=== PATIENT | female | born 1995 | race Caucasian/White ===

== ENCOUNTER 2023-03-20 07:40 | Emergency (ER) | payer BC, SELFPAY ==
[2023-03-20 07:41] VITALS: BP 146/90
--- NOTE | 2023-03-20 07:51 | ED.SKININJ ---
HPI-Injury
General
Chief Complaint: Bite
Source: patient
Time Seen by Provider: 03/20/23 07:48
Travel History
Have you had any contact with someone who has COVID-19?: No
Do you have any symptoms of coronavirus? Fever > 100 degrees, chills, cough, shortness of breath, sore throat, loss of taste or smell, muscle aches, or headache?: No
History of Present Illness-Injury
Initial Injury comments:
28-year-old female presenting to the emergency department for evaluation after she was accidentally bit on the right hand by her dog earlier this morning, dog is domesticated, up-to-date on vaccines, patient unsure if she is updated on her tetanus.
She is right-hand dominant. No other injuries were sustained.
Past History
Past History
ED Past Medical History: GERD and Other (Chronic Abdominal pain)
ED Past Surgical History: Appendectomy
Social History
Tobacco: Non-smoker
Alcohol: None
Drug: None
Personal: Single
Living: with family
Employment: Employed
Family History
Family History: Other (No family history of PEs)
Review of Systems
Review of Systems
All Other Systems: ROS reviewed and negative except as documented in HPI and ROS
Phy Exam
Physical Exam
Physical Exam:
GENERAL: Alert , in no apparent distress
EYE: conjunctiva clear
Head: Normocephalic atraumatic
NECK: Supple,
ENT: mmm.
LUNGS: no acute respiratory distress
NEUROLOGICAL: Alert and oriented
SKIN: Warm and dry, small 8 mm bite wound noted to the dorsal aspect of the second MCP. There is mild surrounding edema. No active bleeding
MUSCULOSKELETAL: well perfused. Full range of motion of all digits
PSYCH: Normal and appropriate interaction.
Scores
Heart Failure Risk
Heart Failure Risk Score: Not Applicable
Heart Score for Chest Pain Patients
STEMI patient?: Not applicable
Withdrawal Assessment of Alcohol
Withdrawal Assessment Completed?: Not applicable
Course
Orders/Labs/Results
Orders:
Orders
03/20/23 07:51
Amoxicillin 875 mg/Clav 125 mg [Augmentin 875 mg/125 mg] 1 tablet PO NOW STA
Tetanus/Diphth/Acelpertussis [Adacel] 0.5 ml IM .ONCE ONE
03/20/23 08:56
Ibuprofen [Motrin] 600 mg PO NOW STA
Vital Signs
Initial and Last Documented VS:
Initial Vital Signs
Temp Pulse Resp BP Pulse Ox
99.0 F 101 16 146/90 97
03/20/23 07:41 03/20/23 07:41 03/20/23 07:41 03/20/23 07:41 03/20/23 07:41
Last Documented Vital Signs
Temp Pulse Resp BP Pulse Ox
99.0 F 91 18 142/90 98
03/20/23 07:41 03/20/23 08:55 03/20/23 08:55 03/20/23 08:55 03/20/23 08:55
MDM/Problems Addressed
MDM/Problems Addressed:
28-year-old female presenting the ER following a bite wound to her right hand, puncture wound is minimal, will leave open due to concern for increasing infection risk by closing. The wound was irrigated extensively with normal saline. Will update
patient's tetanus and treat with Augmentin. Prescription for Augmentin sent to pharmacy. Otherwise stable for discharge and aware of return precautions.
*Pulse Oximetry
Patient hypoxic: no
*Critical Care Note
Total Time (30-74mins, 75-104mins- exclusive of procedures): Not Applicable
ED Attending Note
-
Portions of this chart may have been created with voice recognition software.� Occasional wrong word or��sound alike� substitutions may have occurred due to the inherent limitations of voice recognition software.
Discharge Plan
Departure
Patient Disposition: Home (Routine Discharge)
Date of Disposition: 03/20/23
Time of Disposition: 07:52
Patient with high blood pressure during this ER visit?: Yes
Discharge Problem:
Dog bite of right hand, Bite wound of right hand
Instructions: Animal Bites (DC)
Prescriptions:
New
amoxicillin-pot clavulanate 875-125 mg tablet
1 tab PO BID Qty: 9 0RF
No Action
Beyaz 28 Tablet
1 tab PO DAILY
lactulose 20 GM/30 ML solution
20 gm PO DAILY PRN (Reason: constipation) Qty: 240 0RF
dicyclomine 10 MG capsule
10 mg PO QIDPRN PRN (Reason: abdominal pain) Qty: 30 0RF
ibuprofen 600 MG tablet
600 mg PO Q6 PRN (Reason: pain) Qty: 20 0RF
pantoprazole [Protonix] 20 MG tablet,delayed release (DR/EC)
20 mg PO DAILY Qty: 14 1RF
Stand Alone Forms: Return to Work
Interventions
Interventions:
*Risk Screen - Suicide Last Done: 03/20/23 08:53
*General Assessment Last Done: 03/20/23 08:53
*Neglect/Abuse Screening Last Done: 03/20/23 08:53
ED- Fall Risk Assessment Last Done: 03/20/23 08:54
*ED COVID-19 Vaccine History Last Done: 03/20/23 07:41
*Nursing Disposition Last Done: 03/20/23 09:07
ED-Skin Assessment Last Done: 03/20/23 08:54
Discharge Date and Time
Discharge Date/Time: 03/20/23 09:05
[2023-03-20] MEDS: AUGMENTIN 875 MG/125 MG 1 TABLET PO (08:48)
[2023-03-20] MEDS: ADACEL 0.5 ML IM (08:49)
[2023-03-20 08:55] VITALS: BP 142/90
[2023-03-20] MEDS: MOTRIN 600 MG PO (08:58)
== END 2023-03-20 09:05 | disposition home or self-care (01) ==
LOC: EMR 07:40
PROVIDERS: EMERGENCY PHYSICIAN Emergency Medicine; FAMILY PHYSICIAN Family Medicine
DX: S61.451A Open bite of right hand, initial encounter (principal); W54.0XXA Bitten by dog, initial encounter; Z23 Encounter for immunization; K21.9 Gastro-esophageal reflux disease without esophagitis; Z90.49 Acquired absence of other specified parts of digestive tract
CPT/HCPCS: 99282; 90471; 90715

== ENCOUNTER 2024-09-20 13:39 | Emergency (ER) | payer BC, SELFPAY ==
[2024-09-20 13:41] VITALS: BP 150/96
[2024-09-20 14:13] LABS: Hematocrit 40.0 % (37.0-47.0); Hemoglobin 13.4 g/dL (12.0-16.0); Mean Corp Hgb Conc. 33.5 g/dL (33.0-37.0); Mean Corpuscular Volume 81.8 fL (81.0-99.0); Nucleated Red Blood Cells % 0 %; Platelet Count 377 10^3/uL (130-400); Red Cell Dist. Width 13.1 % (11.5-14.5)
[2024-09-20 14:19] LABS: Urine Character Clear (Clear)
[2024-09-20 14:29] LABS: Urine Red Blood Cell 70-80 /HPF (0-2); Urine Squamous Cell >30 /LPF (Few)
[2024-09-20 14:29] LABS: HCG, Serum Qualitative Screen Negative
[2024-09-20 14:34] LABS: ALT (SGPT) 23 U/L (0-35); AST (SGOT) 19 U/L (14-36); Albumin 4.3 g/dl (3.5-5.0); Alkaline Phosphatase 73 U/L (38-126); Blood Urea Nitrogen 19 mg/dl (7-17); Calcium 9.1 mg/dl (8.4-10.2); Carbon Dioxide 23 mmol/L (22-30); Chloride 107 mmol/L (98-107); Glucose 97 mg/dl (70-99); Potassium 3.7 mmol/L (3.5-5.1); Sodium 140 mmol/L (135-145); Total Protein 7.2 g/dl (6.3-8.2); eGFR > 60.00
[2024-09-20 15:28] VITALS: BMI 39.6
--- NOTE | 2024-09-20 15:33 | ED.GENMED ---
History of Present Illness
General
Chief Complaint: Flank Pain
Source: patient
Exam Limitations: none
Time Seen by Provider: 09/20/24 15:12
Nursing documentation reviewed up to this point in time: agreed with
History of Present Illness
History of Present Illness:
Patient to ED wt complaint of left flank pain. States she noticed pain x 1 hr on saturday. No pain on saturday. Today pain returned and has been constant. Pain radiates to lower abd. Denies fever/chills, n/v/d. No prior historyofsame. To ED
accompainied by family for eval
Past History
Past History
ED Past Medical History: GERD and Other (Chronic Abdominal pain, IBS)
ED Past Surgical History: Appendectomy
Social History
Tobacco: Non-smoker
Alcohol: None
Drug: None
Personal: Single
Living: with family
Employment: Employed
Family History
Family History: Other (No family history of PEs)
Review of Systems
Review of Systems
Allergies reviewed?: Yes
All Other Systems: ROS reviewed and negative except as documented in HPI and ROS
Constitutional: Reports no symptoms
EENT: Reports no symptoms
Respiratory: Reports no symptoms
Cardiac: Reports no symptoms
ABD/GI: Reports no symptoms
: Reports flank pain (left flank)
Musculoskeletal: Reports no symptoms
Skin: Reports no symptoms
Neurological: Reports no symptoms
Psychiatric: Reports no symptoms
Phy Exam
General Physical Exam
General Presentation: moderate distress
General age: appears stated age
General Skin: warm and dry
General Habitus: normal
General Mental: alert
Gastrointestinal Exam
Gastrointestinal Exam: normal bowel sounds, soft, no organomegaly, no pulsatile mass and non distended
Palpation: left upper quadrant: No tenderness, left lower quadrant: Moderate tenderness, right upper quadrant: No tenderness and right lower quadrant: No tenderness
Musculoskeletal Exam
Musculoskeletal Exam: full ROM and neuro vasc intact
Skin Exam
Skin Exam: normal color, warm/dry and no rash
Psychiatric Exam
Psychiatric Exam: normal mood/affect
Course
Orders/Labs/Results
Orders:
Orders
09/20/24
Urinalysis Reflex To Culture Urgent
Date Specimen was Collected: 09/20/24
Time Specimen was Collected: 13:48
Urine Microscopic Reflex Cult Urgent
Urine Culture Urgent
RONIT Source: U
Specimen Description:
Date Specimen was Collected: 09/20/24
Time Specimen was Collected: 13:48
09/20/24 13:47
Test Result ONCE
09/20/24 14:01
CMP [Comprehensive Metabolic Panel] Urgent
Complete Blood Count/With Diff Urgent
HCG, Serum Qualitative Screen Urgent
09/20/24 15:16
CT Abd/pel Without Iv Or Oral Urgent
Comment:
Reason For Exam: left flank pain
09/20/24 15:19
0.9% Sodium Chloride 500 ml [Nss] 500 ml IV BOLUS
Ketorolac [Toradol] 30 mg IV NOW STA
09/20/24 17:20
Tamsulosin [Flomax] 0.4 mg PO NOW STA
Abnormal Lab Results
09/20/24 09/20/24
14:01 Unknown
WBC 15.6 H 10^3/uL
(4.8-10.8)
Abs Immat Gran (auto) 0.1 H 10^3/uL
(0-0.05)
Absolute Neuts (auto) 9.2 H 10^3/uL
(1.4-6.5)
Absolute Lymphs (auto) 5.3 H 10^3/uL
(1.2-3.4)
Absolute Monos (auto) 1.0 H 10^3/uL
(0.1-0.6)
BUN 19 H mg/dl
(7-17)
Ur Occult Blood Reflex 4+ A
(Negative)
Leukocyte Esterase Rfl 1+ A
(Negative)
Urine RBC 70-80 A /HPF
(0-2)
Urine Bacteria (Reflex) Many A
(Negative)
Urine Albumin (Reflex) 2+ A
(Neg - Trace)
09/20/24 14:01
09/20/24 14:01
Vital Signs
Initial and Last Documented VS:
Initial Vital Signs
Temp Pulse Resp BP Pulse Ox
98.5 F 110 18 150/96 98
09/20/24 13:41 09/20/24 13:41 09/20/24 13:41 09/20/24 13:41 09/20/24 13:41
Last Documented Vital Signs
Temp Pulse Resp BP Pulse Ox
98.5 F 110 18 150/96 98
09/20/24 13:41 09/20/24 13:41 09/20/24 13:41 09/20/24 13:41 09/20/24 15:36
*Radiology
Radiology exam reviewed: radiology read reviewed
*Pulse Oximetry
SaO2: 98
Oxygen Mode of Delivery: Room air
Patient hypoxic: no
*Critical Care Note
Total Time (30-74mins, 75-104mins- exclusive of procedures): Not Applicable
Update Note
Update Note:
Patient to ED with complaint of left flank pain. CT confirms 5mm proximal ureter stone with mild hydro. UA reviewed, >30 squamous cells. 6-10 WBC. Doubt UTI, will wait for urine culture. SHe remains afebrile. Pain relieved with toradol. No
vmiting in ED. WIll discharge home, short course of pain meds prescribed. WIll increase fluid intake. Rx for flomax given. SHe will strain urine at home, schedule appt in AM with urology for follow up. Given instructions on s/s to return to ED
and she is agreeeable to plan
ED Attending Note
-
Portions of this chart may have been created with voice recognition software.� Occasional wrong word or��sound alike� substitutions may have occurred due to the inherent limitations of voice recognition software.
Discharge Plan
Departure
Patient Disposition: Home (Routine Discharge)
Date of Disposition: 09/20/24
Time of Disposition: 17:21
Patient with high blood pressure during this ER visit?: No
Condition: Good
Covid-19: Not Applicable
Discharge Problem:
Kidney stone
Instructions: Kidney Stones (DC), How to Strain Your Urine, Narcotic Pain Medication
Prescriptions:
New
tamsulosin [Flomax] 0.4 mg capsule
0.4 mg PO DAILY Qty: 14 0RF
hydrocodone-acetaminophen 5-325 mg tablet
1 tab PO Q4H PRN (Reason: Pain) Qty: 14 0RF
No Action
Beyaz 28 Tablet
1 tab PO DAILY
lactulose 20 GM/30 ML solution
20 gm PO DAILY PRN (Reason: constipation) Qty: 240 0RF
dicyclomine 10 MG capsule
10 mg PO QIDPRN PRN (Reason: abdominal pain) Qty: 30 0RF
ibuprofen 600 MG tablet
600 mg PO Q6 PRN (Reason: pain) Qty: 20 0RF
pantoprazole [Protonix] 20 MG tablet,delayed release (DR/EC)
20 mg PO DAILY Qty: 14 1RF
amoxicillin-pot clavulanate 875-125 mg tablet
1 tab PO BID Qty: 9 0RF
Referrals:
Efrem Talley MD [Family Provider, Family Practice]
Thai Valencia MD [Active, Urology] - Call in 1-3 days for appt
Activity Restrictions/Additional Instructions:
Return to the emergency department for fever/chills, worsening flank, abdominal, or back pain, vomiting, or for any further concerns
Interventions
Interventions:
*Risk Screen - Suicide Last Done: 09/20/24 13:41
*General Assessment Last Done: 09/20/24 15:29
*Neglect/Abuse Screening Last Done: 09/20/24 13:41
*ED- Fall Risk Assessment Last Done: 09/20/24 15:29
*ED COVID-19 Vaccine History Last Done: 09/20/24 13:47
PQ-Kplnbh-Xkqliykhgk Assessment Last Done: 09/20/24 15:37
Discharge Date and Time
Print Language: KITTITIAN
[2024-09-20] MEDS: TORADOL 30 MG IV (15:55)
[2024-09-20] MEDS: NSS 500 IV (15:58)
[2024-09-20] MEDS: FLOMAX 0.4 MG PO (17:34)
== END 2024-09-20 17:44 | disposition home or self-care (01) ==
LOC: EMR 13:39
PROVIDERS: Emergency Medicine; EMERGENCY PHYSICIAN Emergency Medicine; FAMILY PHYSICIAN Family Medicine
DX: N13.2 Hydronephrosis with renal and ureteral calculous obstruction (principal); K58.9 Irritable bowel syndrome, unspecified; K21.9 Gastro-esophageal reflux disease without esophagitis; K52.9 Noninfective gastroenteritis and colitis, unspecified; G89.29 Other chronic pain; Z91.048 Other nonmedicinal substance allergy status; Z87.820 Personal history of traumatic brain injury
CPT/HCPCS: 99284; 96374; 96361; 74176; 80053; 81003; 81015; 84703; 85025; 87086

== ENCOUNTER → 2024-10-07 13:11 | Outpatient (REF) | payer BC, SELFPAY | LOC: RAD 13:11 | PROVIDERS: ATTENDING PHYSICIAN Surgery; FAMILY PHYSICIAN Physician Assistant | DX: N20.0 Calculus of kidney (principal) | CPT/HCPCS: 74018 ==

== ENCOUNTER → 2024-12-04 12:34 | Outpatient (REF) | payer BC, SELFPAY | LOC: RAD 12:34 | PROVIDERS: ATTENDING PHYSICIAN Surgery; FAMILY PHYSICIAN Family Medicine | DX: N13.2 Hydronephrosis with renal and ureteral calculous obstruction (principal) | CPT/HCPCS: 74018 ==

== ENCOUNTER 2024-12-04 18:46 | Emergency (ER) | payer BC, SELFPAY ==
[2024-12-04 18:52] VITALS: BP 120/78
[2024-12-04 19:20] LABS: Hematocrit 41.1 % (37.0-47.0); Hemoglobin 14.3 g/dL (12.0-16.0); Mean Corp Hgb Conc. 34.8 g/dL (33.0-37.0); Mean Corpuscular Volume 81.4 fL (81.0-99.0); Nucleated Red Blood Cells % 0 %; Platelet Count 339 10^3/uL (130-400); Red Cell Dist. Width 12.5 % (11.5-14.5)
[2024-12-04] MEDS: ZOFRAN 4 MG IV (22:36)
[2024-12-04] MEDS: NSS 1000 IV (22:36)
[2024-12-04] MEDS: TORADOL 15 MG IV (22:38)
[2024-12-04 22:48] VITALS: BMI 38.7
[2024-12-04 22:52] VITALS: BP 130/77
[2024-12-04 22:57] LABS: HCG, Serum Qualitative Screen Negative
[2024-12-04 23:00] VITALS: BP 129/84
[2024-12-04 23:09] LABS: ALT (SGPT) 17 U/L (0-35); AST (SGOT) 21 U/L (14-36); Albumin 4.4 g/dl (3.5-5.0); Alkaline Phosphatase 104 U/L (38-126); Blood Urea Nitrogen 10 mg/dl (7-17); Calcium 9.3 mg/dl (8.4-10.2); Carbon Dioxide 21 mmol/L (22-30); Chloride 104 mmol/L (98-107); Estimated Creatinine Clearance 121 ml/min; Glucose 95 mg/dl (70-99); Potassium 3.9 mmol/L (3.5-5.1); Sodium 134 mmol/L (135-145); Total Protein 7.7 g/dl (6.3-8.2); eGFR > 60.00
[2024-12-05] VITALS: BP 131/87
[2024-12-05 00:22] LABS: Urine Character Clear (Clear)
[2024-12-05 01:00] VITALS: BP 134/78
[2024-12-05 01:02] LABS: Urine Squamous Cell >30 /LPF (Few)
[2024-12-05 01:06] LABS: Urine White Cell 16-20 /HPF (0-5)
[2024-12-05 02:00] VITALS: BP 130/78
--- NOTE | 2024-12-05 02:18 | ED.GENMED ---
History of Present Illness
General
Chief Complaint: Flank Pain
Time Seen by Provider: 12/04/24 21:31
Nursing documentation reviewed up to this point in time: agreed with
History of Present Illness
History of Present Illness:
29-year-old female presents to the ER for evaluation of left-sided flank pain along with vomiting today. Patient states that she has experienced kidney stones, predominantly on the left as recently as this summer. She has been in contact with her
urologist and had been given a prescription to have a KUB performed for follow-up to ensure passage of previous stone. Patient had this x-ray done today prior to coming to the ER. She denies fevers. She denies recent sick contacts. She did have
Tylenol with codeine at home to take which did not help to alleviate her symptoms prompting visit to the ER today.Patient denies -her period was last week. She denies dysuria or hematuria. She denies urinary frequency
Past History
Past History
ED Past Medical History: GERD and Other (Chronic Abdominal pain, IBS)
ED Past Surgical History: Appendectomy
Social History
Tobacco: Non-smoker
Alcohol: None
Drug: None
Personal: Single
Living: with family
Employment: Employed
Family History
Family History: Other (No family history of PEs)
Review of Systems
Review of Systems
Allergies reviewed?: Yes
Phy Exam
Physical Exam
Physical Exam:
Patient is awake, alert, appears in no acute distress, head is NCAT, PERRL, EOMI mucous membranes tachy, conjunctiva pink, heart regular rate and rhythm without murmurs or ectopy, lungs are clear to auscultation without wheezes rales or rhonchi, no
JVD, no CVA tenderness, abdomen is soft and nontender on palpation, extremities without edema, GCS is 15
Course
Orders/Labs/Results
Orders:
Orders
12/04/24 19:10
CBC/With Diff [Complete Blood Count/With Diff] Urgent
12/04/24 19:17
Add On- LAB Urgent
Tests Added?: serum hcg
12/04/24 21:57
Bladder Scan- Treatment ONCE
0.9% Sodium Chloride 1000 ml [Nss] 1,000 ml IV BOLUS
Ketorolac [Toradol] 15 mg IV NOW STA
Ondansetron Injectable [Zofran] 4 mg IV NOW STA
12/04/24 22:41
Comprehensive Metabolic Panel Urgent
HCG, Serum Qualitative Screen Urgent
12/04/24 23:57
Urinalysis Reflex To Culture Urgent
Date Specimen was Collected: 12/04/24
Time Specimen was Collected: 23:54
Urine Microscopic Reflex Cult Urgent
Urine Culture Urgent
RONIT Source: U
Specimen Description:
Date Specimen was Collected: 12/04/24
Time Specimen was Collected: 23:54
Abnormal Lab Results
12/04/24 12/04/24 12/04/24
19:10 22:41 23:57
WBC 14.0 H 10^3/uL
(4.8-10.8)
Absolute Neuts (auto) 11.0 H 10^3/uL
(1.4-6.5)
Absolute Monos (auto) 0.7 H 10^3/uL
(0.1-0.6)
Neutrophils % 79.0 H %
(42.2-75.2)
Lymphocytes % 14.9 L %
(20.5-51.1)
Sodium 134 L mmol/L
(135-145)
Carbon Dioxide 21 L mmol/L
(22-30)
Ur Occult Blood Reflex 4+ A
(Negative)
Leukocyte Esterase Rfl 1+ A
(Negative)
Urine RBC 11-15 A /HPF
(0-2)
Urine WBC (Reflex) 16-20 A /HPF
(0-5)
Urine Bacteria (Reflex) Moderate A
(Negative)
12/04/24 19:10
12/04/24 22:41
White blood count mildly elevated, however this is similar to prior labs from August. Kidney function preserved. Electrolytes within normal limits. Urinalysis appears contaminated rather than infected. Would await culture for treatment
Vital Signs
Initial and Last Documented VS:
Initial Vital Signs
Temp Pulse Resp BP Pulse Ox
97.9 F 127 15 120/78 100
12/04/24 18:52 12/04/24 18:52 12/04/24 18:52 12/04/24 18:52 12/04/24 18:52
Last Documented Vital Signs
Temp Pulse Resp BP Pulse Ox
97.9 F 127 15 120/78 100
12/04/24 18:52 12/04/24 18:52 12/04/24 18:52 12/04/24 18:52 12/05/24 02:19
MDM/Problems Addressed
Differential Diagnosis Includes:
Differential diagnosis to consider but not limited to kidney stone, pyelonephritis, gastroenteritis, bowel obstruction along with other etiologies considered
Chronic conditions affecting care:
kidney stones
*Radiology
Radiology exam reviewed: radiology read reviewed (I reviewed KUB result from today that had been performed as an outpatient showing:IMPRESSION: No radiopaque stones appreciated on the current study. Left ureteral stone on prior radiograph is not
definitively seen.)
*Pulse Oximetry
SaO2: 100
Oxygen Mode of Delivery: Room air
Patient hypoxic: no
*Critical Care Note
Total Time (30-74mins, 75-104mins- exclusive of procedures): Not Applicable
Data Reviewed
Review of Other/Old Records Reveals: Other (I reviewed prescription drug monitoring database)
Update Note
Update Note:
Patient feeling much better after hydration, Toradol and Zofran. I reviewed all test results with patient. I discussed with her most likely etiology of symptoms due to stone that was not seen on KUB today. Patient feels comfortable with plan to
follow-up with Dr. Valencia for reevaluation and further care. Will give prescription oxycodone to use as needed for severe pain along with Zofran. Patient feels comfortable with this plan and has no questions at the current time.
ED Attending Note
-
Portions of this chart may have been created with voice recognition software.� Occasional wrong word or��sound alike� substitutions may have occurred due to the inherent limitations of voice recognition software.
Discharge Plan
Departure
Patient Disposition: Home (Routine Discharge)
Date of Disposition: 12/05/24
Time of Disposition: 02:30
Patient with high blood pressure during this ER visit?: No
Discharge Problem:
Renal colic on left side
Instructions: Flank Pain (DC)
Prescriptions:
New
oxycodone 5 mg tablet
5 mg PO Q6H PRN (Reason: Pain) Qty: 8 0RF
ondansetron 4 mg tablet,disintegrating
4 mg PO TIDPRN PRN (Reason: nausea/vomiting) Qty: 14 0RF
No Action
Beyaz 28 Tablet
1 tab PO DAILY
tamsulosin [Flomax] 0.4 mg capsule
0.4 mg PO HS
omeprazole 20 mg Capsule,Delayed Release(Dr/Ec)
20 mg PO PRN PRN (Reason: reflux)
prednisone
1 dose PO DAILY
Patient Comments:
tapering for poison rl
Referrals:
Thai Valencia MD [Active, Urology] - Next open appointment
Gaby Webster MD [Family Provider, Family Practice]
Activity Restrictions/Additional Instructions:
Encourage fluids. Please follow-up with Dr. Stein this week for reevaluation and further care. Return to the ER for any concerns including but not limited to inability to eat or drink, fever, severe pain
Interventions
Interventions:
*Risk Screen - Suicide Last Done: 12/04/24 18:52
*General Assessment Last Done: 12/04/24 18:52
*Neglect/Abuse Screening Last Done: 12/04/24 22:30
*ED- Fall Risk Assessment Last Done: 12/04/24 22:30
*ED COVID-19 Vaccine History Last Done: 12/04/24 18:52
*ED Influenza Vaccine History Last Done: 12/04/24 18:52
MD-Qenzbq-Unjoclpfdo Assessment Last Done: 12/04/24 22:30
ED-Female Genitourinary Assessment Last Done: 12/04/24 22:30
Discharge Date and Time
Print Language: IRISH
== END 2024-12-05 02:45 | disposition home or self-care (01) ==
LOC: EMR 18:46
PROVIDERS: Emergency Medicine; EMERGENCY PHYSICIAN Emergency Medicine; FAMILY PHYSICIAN Family Medicine
DX: N23 Unspecified renal colic (principal); K21.9 Gastro-esophageal reflux disease without esophagitis; K58.9 Irritable bowel syndrome, unspecified; Z87.442 Personal history of urinary calculi; Z90.49 Acquired absence of other specified parts of digestive tract
CPT/HCPCS: 99283; 96374; 96375; 96361; 74018; 80053; 81003; 81015; 84703; 85025; 87086